=== PATIENT | female | born 1965 | race African-American/Black ===

== ENCOUNTER → 2017-02-21 | Outpatient (CLI) | payer OTHER ==
--- NOTE | ~2017-02-21 | MY11 ---
[facility] A Service of [facility] RADIOLOGY TEXT RESULTS PATIENT: ALONZO MITCHELL LOCATION: [facility] : [birth year] UNIT #: [id number] AGE: [address]: MICHELLE WHEELER MD SEX: F ORDER DR: [id number] [facility] [place], [place] [address] [id number] O MR#: [id number] Acc #: [id number] NAME: ALONZO MITCHELL : 1965 SEX: F STUDY DATE/TIME: 02/21/2017 7:40 UNIT: [facility] ROOM: STUDY DESCRIPTION: MY Mammogram Screening [place] Attending Physician: Michelle Wheeler M.D. Referring Physician: Michelle Wheeler M.D. Ordering Physician: Michelle Wheeler M.D. Primary Care Physician: Michelle Wheeler M.D. MEDICAL IMAGING REPORT This report is preliminary unless electronic signature is present EXAM Bilateral digital screening mammogram with CAD HISTORY Routine screening. No current complaints. Baseline study. No family breast cancer. FINDINGS MLO and CC digital views of each breast were obtained and reviewed with an FDA-approved CAD device. Breasts have scattered fibroglandular densities. There are no masses or calcifications. IMPRESSION No evidence of malignancy. Patients over the age of 40 are entered into a reminder system with target due date for the next mammogram. A result letter will also be sent to the patient. BIRADS: 1 Negative Dictated by... Rusty Adan M.D. THIS IS AN ELECTRONICALLY VERIFIED REPORT Rusty Adan M.D. at 02/21/2017 1:22 PM ALEXIS/marcus TD: 02/21/2017 11:23 JOB #: [id number] [facility] A Service [facility] RADIOLOGY TEXT RESULTS PATIENT: ALONZO MITCHELL LOCATION: [facility] : 67 UNIT #: [id number] AGE: [address]: MICHELLE WHEELER MD SEX: F ORDER DR: MEDICAL IMAGING REPORT Page 1 of 1 COPY
== END | disposition home or self-care (01) ==
LOC: CWCC 07:21
DX: Z12.31 Encounter for screening mammogram for malignant neoplasm of breast (principal)
CPT/HCPCS: G0202

== ENCOUNTER → 2017-04-26 | Outpatient (CLI) | payer OTHER ==
--- NOTE | ~2017-04-26 | CR150 ---
[facility] A Service of [facility] RADIOLOGY TEXT RESULTS PATIENT: DREW MITCHELL LOCATION: [facility] : 67 UNIT #: [id number] AGE: [address]: MICHELLE WHEELER MD SEX: F ORDER DR: [id number] [facility] [address] [place], [place] [address] [id number] O MR#: [id number] Acc #: [id number] NAME: DREW MITCHELL : 1965 SEX: F STUDY DATE/TIME: 04/26/2017 7:51 UNIT: [facility] ROOM: STUDY DESCRIPTION: CR Hip Min 2 Views Lt Attending Physician: Michelle Wheeler M.D. Referring Physician: Michelle Wheeler M.D. Ordering Physician: Michelle Wheeler M.D. Primary Care Physician: Michelle Wheeler M.D. MEDICAL IMAGING REPORT This report is preliminary unless electronic signature is present EXAM Left hip 04/26/2017. [facility] HISTORY 52-year-old woman. Pain left hip radiating down left leg. Symptoms 6 months duration. FINDINGS AP pelvis with frog-leg lateral view of the left hip demonstrates normal pelvis bone structure. Left hip appears normal. There is no degenerative narrowing or osteophyte formation. There are no cystic erosions. Mineralization appears normal. Cortex is intact. Soft tissues are normal. Large body habitus noted. IMPRESSION Negative left hip. No abnormal pelvic finding. Consider lumbar spine evaluation as etiology for symptoms. Dictated by... José Miguel Espinoza M.D. THIS IS AN ELECTRONICALLY VERIFIED REPORT José Miguel Espinoza M.D. at 04/26/2017 1:57 PM OZIEL/saira TD: 04/26/2017 10:19 JOB #: [id number] MEDICAL IMAGING REPORT Page 1 of 1 COPY
== END | disposition home or self-care (01) ==
LOC: CRAD 07:44
DX: M25.552 Pain in left hip (principal)
CPT/HCPCS: 73502

== ENCOUNTER → 2017-05-01 | Outpatient (CLI) | payer OTHER ==
--- NOTE | ~2017-05-01 | CR181 ---
[facility] A Service of [facility] RADIOLOGY TEXT RESULTS PATIENT: DREW MITCHELL LOCATION: [facility] : 67 UNIT #: [id number] AGE: [address]: MICHELLE WHEELER MD SEX: F ORDER DR: [id number] [facility] [address]. [place], [place] [address] [id number] O MR#: [id number] Acc #: [id number] NAME: DREW MITCHELL : 1965 SEX: F STUDY DATE/TIME: 05/01/2017 13:07 UNIT: [facility] ROOM: STUDY DESCRIPTION: CR Lumbar Spine 2 or 3 Views Attending Physician: Michelle Wheeler M.D. Referring Physician: Michelle Wheeler M.D. Ordering Physician: Michelle Wheeler M.D. Primary Care Physician: Michelle Wheeler M.D. MEDICAL IMAGING REPORT This report is preliminary unless electronic signature is present EXAM Lumbar spine, 05/01. INDICATIONS Low back pain and hip pain radiating to the left leg for 5 months. No trauma. FINDINGS Three views of the lumbar spine were obtained. No comparison. There is some mild degenerative endplate spurring at multiple levels. Vertebral body heights and disc spaces are normal. No fracture or malalignment is identified. Incidental note is made of atherosclerotic disease. IMPRESSION Relatively mild degenerative disease. No fracture or malalignment. Dictated by... Bowen Garcia Jr., M.D. THIS IS AN ELECTRONICALLY VERIFIED REPORT Bowen Garcia Jr., M.D. at 05/02/2017 5:11 PM ADALBERTO/milad TD: 05/02/2017 13:53 JOB #: [id number] MEDICAL IMAGING REPORT Page 1 of 1 COPY
== END | disposition home or self-care (01) ==
LOC: CRAD 12:55
DX: M25.552 Pain in left hip (principal); M51.36 Other intervertebral disc degeneration, lumbar region
CPT/HCPCS: 72100